=== PATIENT | female | born 1970 | race American Indian/Alaskan Native ===

== ENCOUNTER 2018-12-13 01:54 | Emergency (ER) | payer MEDICAID, OTHER ==
[2018-12-13 02:30] LABS: Basophils # (Auto) 0.1 K/mm3 (0.0-0.1); Basophils % (Auto) 0.6 % (0.0-1.8); Eosinophils # (Auto) 0.1 K/mm3 (0.0-0.4); Eosinophils % (Auto) 0.9 % (0.0-4.3); Hematocrit 30.6 % (30.3-42.9); Hemoglobin 9.2 gm/dl (10.1-14.3); Lymphocytes # (Auto) 3.5 K/mm3 (1.2-5.4); Lymphocytes % (Auto) 26.3 % (13.4-35.0); Mean Corpuscular HGB Conc 30 % (30-34); Monocytes # (Auto) 0.7 K/mm3 (0.0-0.8); Monocytes % (Auto) 5.2 % (0.0-7.3); Red Blood Count 5.15 M/mm3 (3.65-5.03); Red Cell Distribution Width 19.2 % (13.2-15.2)
[2018-12-13 02:34] LABS: Mean Corpuscular Volume 59 fl (79-97); Platelet Count 184 K/mm3 (140-440)
[2018-12-13] MEDS ORDERED: TORADOL IV ONE (02:48)
[2018-12-13] MEDS ORDERED: ZOFRAN IV ONE (02:48)
[2018-12-13] MEDS ORDERED: NACL 0.9% 1000 ML 1,000 ML IV ONE (02:48)
[2018-12-13 02:56] LABS: Alanine Aminotransferase 14 units/L (7-56); Albumin 4.8 g/dL (3.9-5); BUN/Creatinine Ratio 19; Blood Urea Nitrogen 15 mg/dL (7-17); Calcium 9.7 mg/dL (8.4-10.2); Hemolysis Index 1
--- NOTE | 2018-12-13 03:12 | Emergency Department Report ---
ED Abdominal Pain HPI - General Chief Complaint: Abdominal Pain Stated Complaint: LOWER ABDOMINAL PAIN Time Seen by Provider: 12/13/18 02:18 Source: patient Mode of arrival: Ambulatory Limitations: No Limitations - History of Present Illness Initial Comments: Patient is a 48-year-old female who presents to the emergency room with complaints of suprapubic and right lower quadrant abdominal pain that began 2 hours ago. She states that she has intermittent sharp stabbing pain comes every 2 minutes and feels like "contractions." she denies any nausea, vomiting, diarrhea or urinary symptoms. She states her last bowel movement was earlier today and states it was normal. She does not report any vaginal discharge or vaginal irritation. she has a past medical history of anemia and HTN and states that she typically takes her blood pressure medication around 6 AM. she has a past surgical history of a . Severity scale (0 -10): 4 - Related Data Previous Rx's Medication Instructions Recorded Last Taken Type Naproxen [Naprosyn] 500 mg PO TID PRN #20 tablet 12/13/18 Unknown Rx Allergies Allergy/AdvReac Type Severity Reaction Status Date / Time No Known Allergies Allergy Unverified 05/07/16 07:40 ED Review of Systems ROS: Stated complaint: LOWER ABDOMINAL PAIN Other details as noted in HPI Comment: All other systems reviewed and negative ED Past Medical Hx - Past Medical History Previous Medical History?: Yes Hx Hypertension: Yes Additional medical history: anemia - Surgical History Past Surgical History?: Yes Additional Surgical History: c-sec - Social History Smoking Status: Never Smoker Substance Use Type: None - Medications Home Medications: Home Medications Medication Instructions Recorded Confirmed Last Taken Type Naproxen [Naprosyn] 500 mg PO TID PRN #20 tablet 12/13/18 Unknown Rx ED Physical Exam - General Limitations: No Limitations General appearance: alert, in no apparent distress - Head Head exam: Present: atraumatic, normocephalic - Eye Eye exam: Present: normal appearance, PERRL - ENT ENT exam: Present: mucous membranes moist - Respiratory Respiratory exam: Present: normal lung sounds bilaterally. Absent: respiratory distress, wheezes, rales, rhonchi, stridor, chest wall tenderness, accessory muscle use, decreased breath sounds, prolonged expiratory - Cardiovascular Cardiovascular Exam: Present: regular rate, normal rhythm, normal heart sounds. Absent: systolic murmur, diastolic murmur, rubs, gallop - GI/Abdominal GI/Abdominal exam: Present: soft, tenderness (suprapubic and RLQ), normal bowel sounds. Absent: distended, guarding, rebound, rigid - Back Exam Back exam: Absent: CVA tenderness (R), CVA tenderness (L) - Neurological Exam Neurological exam: Present: alert, oriented X3 - Psychiatric Psychiatric exam: Present: normal affect, normal mood - Skin Skin exam: Present: warm, dry, intact ED Course Vital Signs 12/13/18 12/13/18 01:59 05:20 Temperature 98.1 F 98.2 F Pulse Rate 93 H 75 Respiratory 16 20 Rate Blood Pressure 174/100 Blood Pressure 120/71 [Right] O2 Sat by Pulse 100 100 Oximetry ED Medical Decision Making - Lab Data Result diagrams: 12/13/18 02:04 12/13/18 02:04 Lab Results 12/13/18 12/13/18 12/13/18 Range/Units 02:04 02:04 02:04 WBC 13.1 H (4.5-11.0) K/mm3 RBC 5.15 H (3.65-5.03) M/mm3 Hgb 9.2 L (10.1-14.3) gm/dl Hct 30.6 (30.3-42.9) % MCV 59 L (79-97) fl MCH 18 L (28-32) pg MCHC 30 (30-34) % RDW 19.2 H (13.2-15.2) % Plt Count 184 (140-440) K/mm3 Lymph % (Auto) 26.3 (13.4-35.0) % [place] % (Auto) 5.2 (0.0-7.3) % Eos % (Auto) 0.9 (0.0-4.3) % Baso % (Auto) 0.6 (0.0-1.8) % Lymph # 3.5 (1.2-5.4) K/mm3 [place] # 0.7 (0.0-0.8) K/mm3 Eos # 0.1 (0.0-0.4) K/mm3 Baso # 0.1 (0.0-0.1) K/mm3 Seg Neutrophils % 67.0 (40.0-70.0) % Seg Neutrophils # 8.8 H (1.8-7.7) K/mm3 Sodium 137 (137-145) mmol/L Potassium 3.5 L (3.6-5.0) mmol/L Chloride 102.0 (98-107) mmol/L Carbon Dioxide 23 (22-30) mmol/L Anion Gap 16 mmol/L BUN 15 (7-17) mg/dL Creatinine 0.8 (0.7-1.2) mg/dL Estimated GFR > 60 ml/min BUN/Creatinine Ratio 19 % Glucose 110 H (65-100) mg/dL Calcium 9.7 (8.4-10.2) mg/dL Total Bilirubin 0.20 (0.1-1.2) mg/dL AST 20 (5-40) units/L ALT 14 (7-56) units/L Alkaline Phosphatase 64 (35-129) units/L Total Protein 8.0 (6.3-8.2) g/dL Albumin 4.8 (3.9-5) g/dL Albumin/Globulin Ratio 1.5 % Lipase (13-60) units/L HCG, Qual Negative (Negative) Urine Color (Yellow) Urine Turbidity (Clear) Urine pH (5.0-7.0) Ur Specific [place] (1.003-1.030) Urine Protein (Negative) mg/dL Urine Glucose (UA) (Negative) mg/dL Urine Ketones (Negative) mg/dL Urine Blood (Negative) Urine Nitrite (Negative) Urine Bilirubin (Negative) Urine Urobilinogen (<2.0) mg/dL Ur Leukocyte Esterase (Negative) Urine WBC (Auto) (0.0-6.0) /HPF Urine RBC (Auto) (0.0-6.0) /HPF U Epithel Cells (Auto) (0-13.0) /HPF 12/13/18 12/13/18 Range/Units 02:04 02:26 WBC (4.5-11.0) K/mm3 RBC (3.65-5.03) M/mm3 Hgb (10.1-14.3) gm/dl Hct (30.3-42.9) % MCV (79-97) fl MCH (28-32) pg MCHC (30-34) % RDW (13.2-15.2) % Plt Count (140-440) K/mm3 Lymph % (Auto) (13.4-35.0) % [place] % (Auto) (0.0-7.3) % Eos % (Auto) (0.0-4.3) % Baso % (Auto) (0.0-1.8) % Lymph # (1.2-5.4) K/mm3 [place] # (0.0-0.8) K/mm3 Eos # (0.0-0.4) K/mm3 Baso # (0.0-0.1) K/mm3 Seg Neutrophils % (40.0-70.0) % Seg Neutrophils # (1.8-7.7) K/mm3 Sodium (137-145) mmol/L Potassium (3.6-5.0) mmol/L Chloride (98-107) mmol/L Carbon Dioxide (22-30) mmol/L Anion Gap mmol/L BUN (7-17) mg/dL Creatinine (0.7-1.2) mg/dL Estimated GFR ml/min BUN/Creatinine Ratio % Glucose (65-100) mg/dL Calcium (8.4-10.2) mg/dL Total Bilirubin (0.1-1.2) mg/dL AST (5-40) units/L ALT (7-56) units/L Alkaline Phosphatase (35-129) units/L Total Protein (6.3-8.2) g/dL Albumin (3.9-5) g/dL Albumin/Globulin Ratio % Lipase 27 (13-60) units/L HCG, Qual (Negative) Urine Color Yellow (Yellow) Urine Turbidity Slightly-cloudy (Clear) Urine pH 5.0 (5.0-7.0) Ur Specific [place] 1.026 (1.003-1.030) Urine Protein 30 mg/dl (Negative) mg/dL Urine Glucose (UA) Neg (Negative) mg/dL Urine Ketones Neg (Negative) mg/dL Urine Blood Lg (Negative) Urine Nitrite Neg (Negative) Urine Bilirubin Neg (Negative) Urine Urobilinogen < 2.0 (<2.0) mg/dL Ur Leukocyte Esterase Neg (Negative) Urine WBC (Auto) 41.0 H (0.0-6.0) /HPF Urine RBC (Auto) > 182.0 (0.0-6.0) /HPF U Epithel Cells (Auto) 1.0 (0-13.0) /HPF - Radiology Data Radiology results: report reviewed CT abdomen pelvis w con INDICATION / CLINICAL INFORMATION: suprapubic and RLQ pain. TECHNIQUE: Axial CT imaging of abdomen and pelvis was performed with IV contrast only. Coronal and sagittal reformatted imaging obtained and reviewed. All CT scans at this location are performed using CT dose reduction for ALARA by means of automated exposure control. COMPARISON: None available. FINDINGS: CT abdomen with contrast demonstrates normal appearance of the liver, spleen, pancreas, kidneys, and adrenal glands. No visible gallbladder pathology or biliary dilatation. CT the pelvis demonstrates normal appearance of the appendix. There is a right ovarian cyst present measuring 3 cm. Trace amount of free fluid is seen in the posterior cul-de-sac. Additionally, the uterus is enlarged and very lobulated in appearance. IUD is present within the endometrium and appears to be in satisfactory position. The uterus measures 15.5 cm in length a nd 9.7 cm transversely. Multiple fibroids are seen throughout the uterine parenchyma. There is a pedunculated fundal fibroid measuring 3.5 cm. Additionally there is a 6 cm low density masslike area within the endometrium of the lower uterine segment that could represent fibroid, hemorrhage, or thickened endometrium. The remainder of the pelvis is unremarkable. GI tract is normal. Visualized lung bases are clear. No significant osseous abnormality noted. IMPRESSION: 1. 3 cm right ovarian cyst. This is associated with small amount of free fluid in the posterior cul-de-sac. This may account for the patient's complaint of right lower quadrant pain. A normal appendix is present. 2. Prominently enlarged uterus containing numerous uterine fibroids. There is a 6 cm oval masslike density within the endometrium of the lower uterine segment. This could represent a submucosal fibroid or could represent hemorrhage. Please correlate clinically. 3. The remainder of the exam is unremarkable. . Signer Name: Diana Shannon MD Signed: 12/13/2018 4:13 AM Workstation Name: [id number] Transcribed By: Dictated By: Diana Shannon MD Electronically Authenticated By: Diana Shannon MD Signed Date/Time: 12/13/18 0413 - Medical Decision Making Patient is a 48-year-old female who presents to the emergency room with complaints of suprapubic and right lower quadrant abdominal pain that began 2 hours ago. She states that she has intermittent sharp stabbing pain comes every 2 minutes and feels like "contractions." she denies any nausea, vomiting, diarrhea or urinary symptoms. She states her last bowel movement was earlier today and states it was normal. She does not report any vaginal discharge or vaginal irritation. she has a past medical history of anemia and HTN and states that she typically takes her blood pressure medication around 6 AM. she has a past surgical history of a . initial vitals with elevated blood pr essure that improved on repeat. labs with anemia present at with hemoglobin 9.2, rest of labs WNL. UA shows many RBCs, there are WBCs present but no leukocyte esterase, no nitrites, and no urinary symptoms most likely due to RBCs. pt states that her cycle began today approximately one hour before the onset of her pain. CT abd pelvis with IV contrast shows 1. 3 cm right ovarian cyst. This is associated with small amount of free fluid in the posterior cul-de-sac. This may account for the patient's complaint of right lower quadrant pain. A normal appendix is present. 2. Prominently enlarged uterus containing numerous uterine fibroids. There is a 6 cm oval masslike density within the endometrium of the lower uterine segment. This could represent a submucosal fibroid or could represent hemorrhage. Please correlate clinically. 3. The remainder of the exam is unremarkable. pt states she has a known history of fibroids. pts pain treated while in the ED and she states it has completely resolved. discussed pt with Dr. Yesenia sosa and discussed results, recommended outpatient [facility] follow up and d/c home. pt states she recently began to take a iron supplement prescribed by her PCP. advised pt to please take medication as prescribed as needed. continue taking your iron supplement daily. Follow-up with [facility] and primary care doctor in the next 2-3 days. it is very important that you follow-up with an [facility] INSPECTOR. Return to the emergency room for any new or worsening symptoms. please discuss with your primary care doctor the elevation in your blood pressure during todays visit and keep a blood pressure log. - Differential Diagnosis ovarian cyst, fibroids, appendicitis, colitis, dysmenorrhea Critical care attestation.: If time is entered above; I have spent that time in minutes in the direct care of this critically ill patient, excluding procedure time. ED Disposition Clinical Impression: Elevated blood pressure reading Abdominal pain Qualifiers: Abdominal location: lower abdomen, unspecified Qualified Code(s): R10.30 - Lower abdominal pain, unspecified Uterine fibroid Qualifiers: Uterine leiomyoma location: unspecified location Qualified Code(s): D25.9 - Leiomyoma of uterus, unspecified Ovarian cyst Qualifiers: Laterality: right Qualified Code(s): N83.201 - Unspecified ovarian cyst, right side Anemia Qualifiers: Anemia type: unspecified type Qualified Code(s): D64.9 - Anemia, unspecified Disposition: DC- TO HOME OR SELFCARE Is pt being admited?: No Does the pt Need Aspirin: No Condition: Stable Instructions: Ovarian Cyst (ED), Uterine Fibroids (ED), Abdominal Pain (ED), Anemia (ED) Additional Instructions: Please take medication as prescribed as needed. continue taking your iron supplement daily. Follow-up with [facility] INSPECTOR and primary care doctor in the next 2-3 days. it is very important that you follow-up with an [facility] INSPECTOR. Return to the emergency room for any new or worsening symptoms. please discuss with your primary care doctor the elevation in your blood pressure during todays visit and keep a blood pressure log. Prescriptions: Naproxen [Naprosyn] 500 mg PO TID PRN #20 tablet PRN Reason: Pain, Moderate (4-6) Referrals: [facility] [Outside] - 2-3 Days your, [facility] [Other] - 2-3 Days Time of Disposition: 04:35 Print Language: GERMAN
[2018-12-13 03:19] LABS: Bilirubin,Urine NEG (Negative); Blood,Urine LG (Negative); Color,Urine Yellow (Yellow); Urobilinogen,Urine < 2.0 mg/dL (<2.0)
[2018-12-13 03:22] LABS: RBC,Urine > 182.0 /HPF (0.0-6.0)
--- NOTE | 2018-12-13 04:18 | Cat Scan Report ---
CT abdomen pelvis w con INDICATION / CLINICAL INFORMATION: suprapubic and RLQ pain. TECHNIQUE: Axial CT imaging of abdomen and pelvis was performed with IV contrast only. Coronal and sagittal refo rmatted imaging obtained and reviewed. All CT scans at this location are performed using CT dose redu ction for ALARA by means of automated exposure control. COMPARISON: None available. FINDINGS: CT abdomen with contrast demonstrates normal appearance of the liver, spleen, pancreas, kidneys, and adrenal glands. No visible gallbladder pathology or biliary dilatation. CT the pelvis demonstrates normal appearance of the appendix. There is a right ovarian cyst present m easuring 3 cm. Trace amount of free fluid is seen in the posterior cul-de-sac. Additionally, the uter us is enlarged and very lobulated in appearance. IUD is present within the endometrium and appears to be in satisfactory position. The uterus measures 15.5 cm in length and 9.7 cm transversely. Multiple fibroids are seen throughout the uterine parenchyma. There is a pedunculated fundal fibroid measurin g 3.5 cm. Additionally there is a 6 cm low density masslike area within the endometrium of the lower uterine segment that could represent fibroid, hemorrhage, or thickened endometrium. The remainder of the pelvis is unremarkable. GI tract is normal. Visualized lung bases are clear. No significant osseous abnormality noted. IMPRESSION: 1. 3 cm right ovarian cyst. This is associated with small amount of free fluid in the posterior cul-d e-sac. This may account for the patient's complaint of right lower quadrant pain. A normal appendix i s present. 2. Prominently enlarged uterus containing numerous uterine fibroids. There is a 6 cm oval masslike de nsity within the endometrium of the lower uterine segment. This could represent a submucosal fibroid or could represent hemorrhage. Please correlate clinically. 3. The remainder of the exam is unremarkable. . Signer Name: Diana Shannon MD Signed: 12/13/2018 4:13 AM Workstation Name: [id number]
[2018-12-13 05:25] VITALS: BP 120/71
== END 2018-12-13 04:50 | disposition home or self-care (01) ==
LOC: ED 01:54
DX: N83.201 Unspecified ovarian cyst, right side (principal); D25.9 Leiomyoma of uterus, unspecified; D64.9 Anemia, unspecified; I10 Essential (primary) hypertension
CPT/HCPCS: 36415; 74177; 80053; 81001; 83690; 84703; 85025; 87086; 96374; 96375; 99284; J1885; J2405; J7030; Q9967

== ENCOUNTER 2019-05-15 23:48 | Emergency (ER) | payer SELFPAY ==
[2019-05-15 23:59] VITALS: BP 140/69
[2019-05-16] MEDS ORDERED: dexAMETHasone 20 MG/5 ML VIAL IM ONE (02:17)
[2019-05-16] MEDS ORDERED: KETOROLAC 30 MG/1 ML INJ IM ONE (02:17)
--- NOTE | 2019-05-16 03:40 | Emergency Department Report ---
ED General Adult HPI - General Chief complaint: Neck Pain/Injury Stated complaint: SWOLLEN NECK, HARD TO SWALLOW, SWOLLEN SHOULDER Source: patient Mode of arrival: Ambulatory Limitations: No Limitations - History of Present Illness Initial comments: Patient is a 49-year-old female with a history of hypertension who presents to the ED with complaint of acute onset persistent right lateral neck pain for the last 2 days. Patient states that she woke up with pain and has been persistent since onset. Patient denies fall, traumatic injury, numbness and tingling or weakness of upper and lower extremities bilaterally, heavy lifting, chest pain, shortness of breath, abdominal pain, headache, diaphoresis, nausea and vomiting. MD Complaint: neck pain, right shoulder pain -: Sudden, days(s) (2) Location: neck Radiation: non-radiation Severity scale (0 -10): 3 Quality: aching, dull Consistency: constant Improves with: none Worsens with: movement Associated Symptoms: denies other symptoms. denies: confusion, chest pain, cough, diaphoresis, headaches, loss of appetite, malaise, nausea/vomiting, rash, shortness of breath, syncope, weakness Treatments Prior to Arrival: none - Related Data Previous Rx's Medication Instructions Recorded Last Taken Type Naproxen [Naprosyn] 500 mg PO TID PRN #20 tablet 12/13/18 Unknown Rx Cyclobenzaprine [Flexeril] 10 mg PO QHS PRN #10 tablet 02/27/19 Unknown Rx Naproxen [Naprosyn] 500 mg PO BID PRN #14 tablet 02/27/19 Unknown Rx Cyclobenzaprine [Flexeril] 10 mg PO TID PRN #15 tablet 05/16/19 Unknown Rx Ibuprofen [Motrin] 800 mg PO Q8HR PRN #24 tablet 05/16/19 Unknown Rx traMADoL [Ultram] 50 mg PO Q6HR PRN #12 tablet 05/16/19 Unknown Rx Allergies Allergy/AdvReac Type Severity Reaction Status Date / Time No Known Allergies Allergy Unverified 05/07/16 07:40 ED Review of Systems ROS: Stated complaint: SWOLLEN NECK, HARD TO SWALLOW, SWOLLEN SHOULDER Other details as noted in HPI Constitutional: denies: chills, fever Eyes: denies: eye pain, eye discharge, vision change ENT: denies: ear pain, throat pain Respiratory: denies: cough, shortness of breath, wheezing Cardiovascular: denies: chest pain, palpitations Endocrine: no symptoms reported Gastrointestinal: denies: abdominal pain, nausea, diarrhea Genitourinary: denies: urgency, dysuria, discharge Musculoskeletal: arthralgia (right lateral neck pain; right shoulder pain). denies: back pain, joint swelling Skin: denies: rash, lesions Neurological: denies: headache, weakness, paresthesias Psychiatric: denies: anxiety, depression Hematological/Lymphatic: denies: easy bleeding, easy bruising ED Past Medical Hx - Past Medical History Previous Medical History?: Yes Hx Hypertension: Yes Additional medical history: anemia - Surgical History Past Surgical History?: Yes Additional Surgical History: c-sec, rotator cuff - Social History Smoking Status: Never Smoker Substance Use Type: None - Medications Home Medications: Home Medications Medication Instructions Recorded Confirmed Last Taken Type Naproxen [Naprosyn] 500 mg PO TID PRN #20 tablet 12/13/18 Unknown Rx Cyclobenzaprine [Flexeril] 10 mg PO QHS PRN #10 tablet 02/27/19 Unknown Rx Naproxen [Naprosyn] 500 mg PO BID PRN #14 tablet 02/27/19 Unknown Rx Cyclobenzaprine [Flexeril] 10 mg PO TID PRN #15 tablet 05/16/19 Unknown Rx Ibuprofen [Motrin] 800 mg PO Q8HR PRN #24 tablet 05/16/19 Unknown Rx traMADoL [Ultram] 50 mg PO Q6HR PRN #12 tablet 05/16/19 Unknown Rx ED Physical Exam - General Limitations: No Limitations General appearance: alert, in no apparent distress - Head Head exam: Present: atraumatic, normocephalic, normal inspection - Eye Eye exam: Present: normal appearance, PERRL, EOMI Pupils: Present: normal accommodation - ENT ENT exam: Present: normal exam, normal orophraynx, mucous membranes moist, TM's normal bilaterally, normal external ear exam - Neck Neck exam: Present: normal inspection, tenderness (palpable cervical paraspinal musculoskeletal tenderness), full ROM, other (palpable right lateral sternocleidomastoid muscle tenderness). Absent: meningismus, lymphadenopathy, thyromegaly - Respiratory Respiratory exam: Present: normal lung sounds bilaterally. Absent: respiratory distress, wheezes, rales, chest wall tenderness, decreased breath sounds, prolonged expiratory - Cardiovascular Cardiovascular Exam: Present: regular rate, normal rhythm, normal heart sounds. Absent: systolic murmur, diastolic murmur, rubs, gallop - GI/Abdominal GI/Abdominal exam: Present: soft, normal bowel sounds. Absent: tenderness, guarding, rebound, hyperactive bowel sounds, hypoactive bowel sounds - Extremities Exam Extremities exam: Present: normal inspection, full ROM, tenderness (mild right shoulder tenderness), normal capillary refill - Back Exam Back exam: Present: normal inspection, full ROM. Absent: tenderness, CVA tenderness (R), muscle spasm, paraspinal tenderness, vertebral tenderness - Neurological Exam Neurological exam: Present: alert, oriented X3, CN II-XII intact, normal gait, reflexes normal - Psychiatric Psychiatric exam: Present: normal affect, normal mood - Skin Skin exam: Present: warm, dry, intact, normal color. Absent: rash ED Course Vital Signs 05/15/19 23:52 Temperature 98.7 F Pulse Rate 97 H Respiratory 14 Rate Blood Pressure 140/69 O2 Sat by Pulse 99 Oximetry ED Medical Decision Making - Medical Decision Making This is a 49-year-old female who presented to the ED with nontraumatic lateral right cervical muscles pain and right lateral sternocleidomastoid muscle spasm for 2 days. In the ED, patient is alert and oriented 3 and is not in distress. Patient was treated for pain in the ED and on reevaluation felt better and was discharged home on pain medications and muscle relaxants and was advised follow-up with her primary care physician in 5-7 days for reevaluation or return to the ED immediately if symptoms get worse. - Differential Diagnosis Muscle strain; muscle spasm; cervical spasm Critical care attestation.: If time is entered above; I have spent that time in minutes in the direct care of this critically ill patient, excluding procedure time. ED Disposition Clinical Impression: Cervical paraspinal muscle spasm Strain of sternocleidomastoid muscle Qualifiers: Encounter type: initial encounter Qualified Code(s): S16.1XXA - Strain of muscle, fascia and tendon at neck level, initial encounter Acute cervical myofascial strain Qualifiers: Encounter type: initial encounter Qualified Code(s): S16.1XXA - Strain of muscle, fascia and tendon at neck level, initial encounter Disposition: TO HOME OR SELFCARE Is pt being admited?: No Does the pt Need Aspirin: No Condition: Stable Instructions: Muscle Strain (ED), Cervical Sprain (ED) Additional Instructions: Take medication with food, drink plenty of fluids and follow-up with your primary care physician in 5-7 days for reevaluation. Return to the ED immediately if symptoms get worse. Prescriptions: Cyclobenzaprine [Flexeril] 10 mg PO TID PRN #15 tablet PRN Reason: Muscle Spasm Ibuprofen [Motrin] 800 mg PO Q8HR PRN #24 tablet PRN Reason: Pain , Severe (7-10) traMADoL [Ultram] 50 mg PO Q6HR PRN #12 tablet PRN Reason: Pain Referrals: PRIMARY CARE, [Primary Care Provider] - 3-5 Days Time of Disposition: 03:38 Print Language: GREEK
== END 2019-05-16 03:45 | disposition home or self-care (01) ==
LOC: ED 23:48
DX: S16.1XXA Strain of muscle, fascia and tendon at neck level, initial encounter (principal); I10 Essential (primary) hypertension; Z79.899 Other long term (current) drug therapy; X58.XXXA Exposure to other specified factors, initial encounter; Y93.89 Activity, other specified; Y92.89 Other specified places as the place of occurrence of the external cause; Y99.8 Other external cause status
CPT/HCPCS: 96372; 99282; J1100; J1885